=== PATIENT | male | born 1975 | race Two or more races ===

== ENCOUNTER 2021-11-13 21:22 | Emergency (ER) | payer SELFPAY ==
[~2021-11-13] VITALS: Ht 175.3 cm; Wt 81.6 kg
[2021-11-14 00:12] VITALS: BP 143/89
== END 2021-11-14 00:14 | disposition home or self-care (01) ==
LOC: ER 21:22
DX: S99.921A Unspecified injury of right foot, initial encounter (principal); I10 Essential (primary) hypertension; W01.0XXA Fall on same level from slipping, tripping and stumbling without subsequent striking against object, initial encounter; Y93.89 Activity, other specified; Y92.89 Other specified places as the place of occurrence of the external cause; Y99.8 Other external cause status
CPT/HCPCS: 73630